=== PATIENT | male | born 1995 | race Caucasian/White ===

== ENCOUNTER 2025-08-24 13:26 | Emergency (ER) | payer OTHER, SELFPAY ==
[2025-08-24 13:31] VITALS: BP 149/94; PULSE 70; RESP 18; TEMP 37; O2SAT 100; BMI 27.4
[2025-08-24 13:36] VITALS: BP 149/94; PULSE 70; RESP 18; TEMP 37; O2SAT 100
[2025-08-24 13:55] VITALS: BP 149/94; PULSE 70; RESP 18; TEMP 37; O2SAT 100
--- NOTE | 2025-08-24 13:57 | EX.ED.GUMALE ---
HPI History of Present Illness Chief Complaint: Male Pain/Injury Informant: patient Pain Onset: Today Narrative Narrative: 29-year-old male no [employer] past medical history. States a week or so ago multiple members family had diarrhea. He came down with it this week. He had some chills. Patient lives in [place]. A week ago he was in one of their emergency departments because of trauma he sustained to his chest. He had a CAT scan that was negative for any signs of fracture or other significant injury. He states that the diarrhea continued this week. He had some fever and chills. He denies any dysuria. No history of UTI. His is currently 16 weeks . He said he has been had intercourse for about 4 months. He is here on work and was in a hotel. Masturbated and said his semen was different color. No history of any prostate infections. No history of any STDs. No penile discharge. Prior similar symptoms: No Recent Illness/Hospitalization: No PFSH PFSH Medical History no medical history Allergy/AdvReac Type Severity Reaction Status Date / Time No Known Allergies Allergy Verified 08/24/25 13:30 Family History no significant family his Surgical History no surgical history Social History household members: spouse, family and children housing: house current occupational status: employed Smoking Status: Never smoker ROS ROS ED ROS Narrative Fever chills. Diarrhea. Constitutional Constitutional ED: Reports chills, fever(s) and subjective Eyes Eyes: Denies blurry vision ENT ENT ED: Denies ear pain Cardiovascular Cardiovascular: Denies chest pain Respiratory/Chest Respiratory/Chest: Denies cough or dyspnea Gastrointestinal Gastrointestinal: Reports diarrhea; Denies abdominal pain, constipation, melena, nausea or vomiting Genitourinary Genitourinary ED: Denies dysuria or hematuria Musculoskeletal Musculoskeletal: Denies arthralgias or back pain Integumentary Denies abscess Neurologic Neurologic: Denies headache(s) Psychiatric Psychiatric: Denies anxiety or depression Endocrine Endocrinology: Denies polydipsia, polyphagia or polyuria Hematologic/Lymphatic Hematologic/Lymphatic: Denies easy bleeding, easy bruising or lymphadenopathy Allergic/Immunologic Allergic/Immunologic ED: Denies mouth swelling, tongue swelling or urticaria EXAM Physical Exam Narrative Exam Narrative: 29-year-old male sitting upright in bed vital signs are stable afebrile. No acute distress. H EENT exam pupils round react light. Moist mucous membranes. Neck nontender. No lymphadenopathy. Lungs clear to auscultation bilaterally. Heart regular rhythm no murmur. Chest wall there is a hematoma to his chest wall and abrasions from trauma a week or so ago. Mild tenderness. No crepitus. He has had this previously evaluated by CT. Otherwise ribs are nontender. Abdomen soft nontender normal bowel sounds without peritoneal signs. External exam circumcised male. No discharge. Penis and scrotum are unremarkable. No redness. No rashes. No inguinal lymphadenopathy. No ulcerations. Prostate exam firm nontender prostate. Not boggy. Not warm to the touch. Moving all 4 extremities. Nontender no edema. Back nontender. He is awake and alert. Very benign exam other than chest wall hematoma and abrasions. Const Vital Signs: 08/24/25 13:31 08/24/25 13:36 08/24/25 13:55 Temperature 98.6 F 98.6 F 98.6 F Temperature Source Oral Oral Pulse Rate 70 70 70 Respiratory Rate 18 18 18 Blood Pressure 149/94 H 149/94 H 149/94 H Blood Pressure Mean 112 112 112 Pulse Ox 100 100 100 Oxygen Delivery Method Room Air Room Air MDM MDM MDM Narrative Medical decision making narrative: 29-year-old male recent chest wall trauma that was worked up at another facility with a negative CAT scan according the patient. He has had diarrhea and fever and chills I suspect the Sherrie viral syndrome. And he had abnormally appearing and colored ejaculate. His gross urine looks negative. His prostate exam is unremarkable. UA will be sent. We discharged home with outpatient follow-up with urology if this does not normalize in the next 1 to 2 weeks. Lab Data Attestation: I reviewed the patient's lab results. Lab results narrative: Urinalysis shows Discharge Plan Triage Chief Complaint: Male Pain/Injury ED Provider: Kishore Fermin Dx/Rx/DC Orders Clinical Impression: Diarrhea, Viral syndrome, Chest wall hematoma Instructions: ED Viral Syndrome (Adult) Primary Care Provider: Care Physician,No Primary Activity Restrictions/Additional Instructions: You should progressively start feeling better. I think this is a virus causing the diarrhea. Plenty of fluids and rest. Motrin and Tylenol for any fever. The ejaculate should clear up. If it does not when you get back to [place] In the next several weeks she can follow-up with a urologist. Currently there is no signs of urinary tract infection nor any signs of a prostate infection. Print Language: Serbian Disposition Disposition: Home, Self Care
[2025-08-24 14:05] LABS: Mucous, Urine 0 SEEN /hpf (<or=2+); Red Blood Cells-Urine 0 SEEN /hpf (0-5); Squamous Epithelial Cells - UA 0 SEEN /hpf (0-5)
[2025-08-24 14:08] LABS: Color, Urine Yellow (Yellow); Glucose, Dipstick Normal (Normal); Ketone-Dipstick Negative (Negative); Leukocyte Esterase-Dipstick Negative /ul (Negative); Nitrite-Dipstick Negative (Negative); Occult Blood-Urine 10 /ul (Negative); Protein-Dipstick 15 mg/dl (Negative); Specific Gravity, Urine 1.010 (1.002-1.030); Urine Bilirubin Dipstick Negative (Negative)
== END 2025-08-24 14:11 | disposition home or self-care (01) ==
PROVIDERS: Emergency Provider Emergency Medicine; Visit Provider Emergency Medicine
DX: R19.7 Diarrhea, unspecified (principal); B34.9 Viral infection, unspecified; S20.20XA Contusion of thorax, unspecified, initial encounter
CPT/HCPCS: 81001; 99282